=== PATIENT | female | born 1965 | race Asian ===

== ENCOUNTER 2019-04-17 18:52 | Emergency (ER) | payer OTHER ==
[2019-04-17 19:03] VITALS: BP 111/70; PULSE 86; TEMP 97.7; BMI 36.7
[2019-04-17] MEDS ORDERED: DIPHTH,PERTUSS(ACELL),TET 0.5 ML DISP.SYRIN IM ONE ×2 (19:19→19:39)
--- NOTE | 2019-04-17 19:40 | PDOC ---
History of Present Illness - General Chief Complaint: Injury Stated Complaint: LEFT HAND/FINGER INJURY Time Seen by Provider: 04/17/19 19:09 History Source: Patient Exam Limitations: No Limitations - History of Present Illness Initial Comments: 04/17/19 19:35 HISTORY OF PRESENT ILLNESS: This is a 53-year-old woman who denies significant medical history presents emergency department for evaluation of laceration to her left palm. Patient reports she was closing a window when she felt a pain on the palm of her left hand. Patient is unsure if any of the glass broke but did not note any disruption in the glass or wooden window frame. Patient placed a paper towel in her hand and came to the emergency department immediately for evaluation. Patient is unsure of her last tetanus shot and is right hand dominant. No recent travel or sick contacts. PAST MEDICAL HISTORY: Denies past medical history SURGICAL HISTORY: Denies ALLERGIES: No known drug allergies REVIEW OF SYSTEMS General/Constitutional: Denies fever or chills. Denies weakness, weight change. HEENT: Denies change in vision. Denies ear pain or discharge. Denies sore throat. Cardiovascular: Denies chest pain or shortness of breath. Respiratory: Denies cough, wheezing, or hemoptysis. Gastrointestinal: Denies nausea, vomiting, diarrhea or constipation. Denies rectal bleeding. Genitourinary: Denies dysuria, frequency, or change in urination. Musculoskeletal: Denies joint or muscle swelling or pain. Denies neck or back pain. Skin and breasts: see HPI Neurologic: Denies headache, vertigo, loss of consciousness, or loss of sensation. Psychiatric: Denies depression or anxiety. Endocrine: Denies increased thirst. Denies abnormal weight change. Hematologic/Lymphatic: Denies anemia, easy bleeding, or history of blood clots. Allergic/Immunologic: Denies hives or skin allergy. Denies latex allergy. PHYSICAL EXAM General Appearance: Well-appearing, appropriately dressed. No apparent distress , no intoxication. Musculoskeletal/Extremities: Normal inspection. FROM of all extremities, normal capillary refill. Pelvis Stable. No CVA tenderness. No tenderness to extremities, pedal edema, swelling, erythema or deformity. Integumentary: Superficial laceration present to the palmar surface of the left hand over the proximal middle phalanx of the fifth finger. Bleeding is well- controlled. No obvious debris present in laceration. NVI. 04/17/19 19:40 Past History - Past Medical History Allergies/Adverse Reactions: Allergies Allergy/AdvReac Type Severity Reaction Status Date / Time No Known Allergies Allergy Verified 04/17/19 18:59 Home Medications: Ambulatory Orders NK [No Known Home Medication] 04/17/19 COPD: No Diabetes: (pre) - Immunization History Immunization Up to Date: No - Suicide/Smoking/Psychosocial Hx Smoking History: Never smoked *Physical Exam - Vital Signs Last Vital Signs Temp Pulse Resp BP Pulse Ox 97.7 F 86 18 111/70 99 04/17/19 18:54 04/17/19 18:54 04/17/19 18:54 04/17/19 18:54 04/17/19 18:54 Procedures - Consent Consent obtained: Verbal, From Patient - Laceration/Wound Repair Left Volar Hand Wound Length: to 2.5 cm Wound Explored: clean Wound's Depth, Shape: superficial Irrigated w/ Saline: Yes Betadine Prep: Yes Anesthesia: 1% Lidocaine Amount of Anesthetic (ccs): 6 Wound Debrided: minimal Wound Repaired With: Sutures Suture Size/Type: 4:0, nylon Number of Sutures: 3 Layer Closure: No Sterile Dressing Applied: Yes Splint Applied: Yes Sling Applied: No Progress: 04/17/19 20:57 the patient tolerated well ED Treatment Course - RADIOLOGY Radiology Studies Ordered: Category Date Time Status HAND- LEFT [RAD] Stat Radiology 04/17/19 19:19 Ordered Medical Decision Making - Medical Decision Making 04/17/19 19:40 A/P: 53-year-old woman with laceration to the palm of her left hand over the proximal phalanx of the fifth finger Full active range of motion of proximal phalanx including flexion and extension. Patient able to perform these movements against resistance without difficulty. X-ray Boostrix Laceration repair if x-ray is negative for fracture 04/17/19 20:55 X-rays as read by me: No acute fractures or dislocations present. No foreign body is seen. Laceration repair-see procedure note for details Discharge home I discussed the physical exam findings, ancillary test results and final diagnoses with the patient. I answered all of the patient's questions. The patient was satisfied with the care received and felt comfortable with the discharge plan and treatment plan. The patient will call their primary care physician within 24 hours to arrange follow-up and will return to the Emergency Department with any new, persistent or worsening symptoms. Portions of this note have been documented using voice recognition software. As a result, errors may occur in the bisque finisher process. Effort has been made to correct all grammatical and bisque finisher error, but some may have been missed. *DC/Admit/Observation/Transfer Diagnosis at time of Disposition: Hand laceration Qualifiers: Encounter type: initial encounter Foreign body presence: without foreign body Laterality: left Qualified Code(s): S61.412A - Laceration without foreign body of left hand, initial encounter - Discharge Dispostion Disposition: HOME Condition at time of disposition: Stable Decision to Admit order: No - Referrals - Patient Instructions Additional Instructions: Rest, elevate, avoid strenuous activity or heavy lifting until sutures are removed Leave dressing on for the next 24 hours, Then may remove dressing gently and wash area with soap and water. Reapply bacitracin ointment and dressing daily for the next 5 days On day #6 keep the wound protected and cover as needed until sutures are removed allowing wound to start to dry May use Tylenol or Motrin for pain relief Suture removal in : 7-10 Days - Post Discharge Activity
== END 2019-04-17 21:01 | disposition home or self-care (01) ==
LOC: JERFT 18:52
PROC: 3E0234Z Introduction of Serum, Toxoid and Vaccine into Muscle, Percutaneous Approach (ICD-10-PCS; principal; 2019-04-17)
PROC: 0HQGXZZ Repair Left Hand Skin, External Approach (ICD-10-PCS; 2019-04-17)
DX: S61.412A Laceration without foreign body of left hand, initial encounter (principal); W45.8XXA Other foreign body or object entering through skin, initial encounter; W22.8XXA Striking against or struck by other objects, initial encounter; Y93.89 Activity, other specified; Y92.018 Other place in single-family (private) house as the place of occurrence of the external cause; Y99.8 Other external cause status
CPT/HCPCS: 12005; 73130-TC-LT-FY; 90471; 90715; 99281-25

== ENCOUNTER 2019-04-26 14:37 | Emergency (ER) | payer OTHER | END 2019-04-26 16:01 | disposition home or self-care (01) | LOC: JERFT 14:37 ==

== ENCOUNTER 2019-04-29 14:14 | Emergency (ER) | payer OTHER ==
[2019-04-29 14:29] VITALS: BP 103/66; PULSE 81; TEMP 98.7; BMI 29.2
--- NOTE | 2019-04-29 14:33 | PDOC ---
Rapid Medical Evaluation Chief Complaint: Suture/Staple Removal(Here) Time Seen by Provider: 04/29/19 14:24 Medical Evaluation: Allergies Allergy/AdvReac Type Severity Reaction Status Date / Time No Known Allergies Allergy Verified 04/29/19 14:27 Vital Signs Temp Pulse Resp BP Pulse Ox 98.7 F 81 18 103/66 99 04/29/19 14:27 04/29/19 14:27 04/29/19 14:27 04/29/19 14:27 04/29/19 14:27 04/29/19 14:30 Patient presents to ED with complaints of: here for suture removal from left hand Patient on brief exam: dry intact sutures I have ordered: none Patient to proceed to the ED Discharge Disposition - Diagnosis Visit for suture removal - Referrals - Patient Instructions - Post Discharge Activity
--- NOTE | 2019-04-29 14:44 | PDOC ---
Suture Removal/Wound Check HPI - History of Present Illness Chief Complaint: Suture/Staple Removal(Here) Stated Complaint: REMOVAL OF STITCHES Time Seen by Provider: 04/29/19 14:24 History Source: Yes: Patient Exam Limitations: Yes: No Limitations Treated at: [facility] ED - Previous ED Treatment Type of procedure performed on last visit: Yes: Laceration Repair Tetanus Immunization: Yes: Up to Date Antibiotics Prescribed: No Past History - Travel Traveled outside of the country in the last 30 days: No Close contact w/someone who was outside of country & ill: No - Past Medical History Allergies/Adverse Reactions: Allergies Allergy/AdvReac Type Severity Reaction Status Date / Time No Known Allergies Allergy Verified 04/29/19 14:27 Home Medications: Ambulatory Orders NK [No Known Home Medication] 04/17/19 COPD: No Diabetes: (pre) - Immunization History Immunization Up to Date: No - Suicide/Smoking/Psychosocial Hx Smoking History: Never smoked Hx Alcohol Use: No Drug/Substance Use Hx: No Suture Removal/Wound Check PE - Physical Exam Laceration/Wound Check Symptoms: reports: Improved, Resolved. denies: Pain, Redness Current Severity Level: None Maximum Severity Level: None Location of Laceration/Wound: right: Finger (base of r 5th finger) *Review of Systems - Review of Systems Constitutional: No: Chills, Fever, Weakness Integumentary: Yes: Other (3 simple interrupted sutures in place). No: Bruising , Erythema All Other Systems: Reviewed and Negative *Physical Exam - Vital Signs Last Vital Signs Temp Pulse Resp BP Pulse Ox 98.7 F 81 18 103/66 99 04/29/19 14:27 04/29/19 14:27 04/29/19 14:27 04/29/19 14:27 04/29/19 14:27 - Physical Exam General Appearance: Yes: Nourished, Appropriately Dressed. No: Apparent Distress Medical Decision Making - Medical Decision Making 04/29/19 14:42 The patient is a 54 y/o F who presents to have her sutures removed from her R hand that were placed two weeks ago. Denies fevers, chills,numbnes, tingling and weakness to the affected extremity. A/P: suture removal 3 simple interrupted sutures placed at the base of the r 5th finger Wound is now dry and well approximated Sutures removed DC home I discussed the physical exam findings, ancillary test results and final diagnoses with the patient. I answered all of the patient's questions. The patient was satisfied with the care received and felt comfortable with the discharge plan and treatment plan. The Patient agrees to follow up with the primary care physician/specialist within 24-72 hours. Return precautions were given. *DC/Admit/Observation/Transfer Diagnosis at time of Disposition: Visit for suture removal - Discharge Dispostion Disposition: HOME Condition at time of disposition: Stable Decision to Admit order: No - Referrals - Patient Instructions Printed Discharge Instructions: DI for Suture Removal Additional Instructions: You had your sutures/jamila removed today. Please use bacitracin on the site for the next week. Avoid soaking the area with water for 1 more week as to what the wound fully heal. Follow-up with her primary care doctor as needed Return to the emergency department if you develop fevers, drainage from the site , increased pain, or have any changes in your symptoms. - Post Discharge Activity Forms/Work/School Notes: Back to Work
== END 2019-04-29 14:54 | disposition home or self-care (01) ==
LOC: JERFT 14:14
DX: Z48.02 Encounter for removal of sutures (principal)
CPT/HCPCS: 99281-25

== ENCOUNTER 2020-02-26 19:14 | Emergency (ER) | payer OTHER ==
--- NOTE | 2020-02-26 19:21 | PDOC ---
Rapid Medical Evaluation Time Seen by Provider: 02/26/20 19:18 Medical Evaluation: Allergies Allergy/AdvReac Type Severity Reaction Status Date / Time No Known Allergies Allergy Verified 04/29/19 14:27 02/26/20 19:18 I performed a brief in-person evaluation of this patient. Pt is a 54 y/o female who presents to the ED with complaint of R hand injury, index finger, after jamming it on the counter for 2 days. Pt also complains of waking up with nausea, upset stomach since this morning. She admits to having loose bowels 2-3 times today. No vomiting. Pertinent physical exam findings: R IF with swelling appreciated, speaking in full sentences, + epigastric abdominal tenderness to palpation. I have ordered the following: R hand xr, saline lock, labs, zofran, pepcid Patient to proceed to ED for further evaluation. Discharge Disposition - Diagnosis Injury of right hand, Abdominal pain - Referrals - Patient Instructions - Post Discharge Activity
[2020-02-26 19:22] VITALS: BMI 35.4
[2020-02-26] MEDS ORDERED: SODIUM CHLORIDE 1,000 ML IV STA (19:22)
[2020-02-26] MEDS ORDERED: FAMOTIDINE 20 MG/50 ML IVPB 20 MG/50 ML MG IVPB ONE ×2 (19:22→20:04)
[2020-02-26] MEDS ORDERED: ONDANSETRON 4 MG/2 ML VIAL IVPUSH ONE (19:22)
[2020-02-26] MEDS ORDERED: MAG HYDROX/AL HYDROX/SIMETH -MYLANTA- ORAL SUSPENSION PO ONE (20:01)
--- NOTE | 2020-02-26 20:10 | PDOC ---
History of Present Illness - General Chief Complaint: Pain Stated Complaint: abdominal pain/nausea Time Seen by Provider: 02/26/20 19:18 History Source: Patient - History of Present Illness Timing/Duration: reports: constant Quality: reports: moderate Abdominal Pain Onset Location: reports: RUQ, epigastric, periumbilical Past History - Medical History Allergies/Adverse Reactions: Allergies Allergy/AdvReac Type Severity Reaction Status Date / Time No Known Allergies Allergy Verified 04/29/19 14:27 Home Medications: Ambulatory Orders Acetaminophen [Tylenol -] 650 mg PO Q6H #30 tablet 02/26/20 Famotidine [Pepcid] 20 mg PO BID #28 tablet 02/26/20 Mag Hydrox/Al Hydrox/Simeth [Mylanta Suspension -] 30 ml PO Q6H #1 bottle 02/26/20 COPD: No Diabetes: Yes (pre) - Immunization History Immunization Up to Date: No - Psycho-Social/Smoking History Smoking History: Never smoked Have you smoked in the past 12 months: No - Substance Abuse Hx (Audit-C & DAST Scrn) How often the patient has a drink containing alcohol: Never Score: In Men: 4 or > Positive; In Women: 3 or > Positive: 0 Screen Result (Pos requires Nsg. Audit-10AR): Negative In the last yr the pt used illegal drug/Rx for NonMed reason: No Score: Yes response is considered Positive: 0 Screen Result (Positive result requires Nsg. DAST-10): Negative Abd/GI Specific PMHX - Complaint Specific PMHX Colitis: No Gall Bladder Disease: No Irritable Bowel Synd (IBS): No GI Ulcer Disease: No Review of Systems - Review of Systems Constitutional: No: Chills, Fever Respiratory: No: Cough, Shortness of Breath Cardiac (ROS): No: Chest Pain ABD/GI: Yes: Nausea, Abdominal cramping. No: Blood Streaked Bowels, Constipated, Diarrhea, Rectal Bleeding, Vomiting : No: Dysuria, Flank Pain, Hematuria *Physical Exam - Vital Signs Last Vital Signs Temp Pulse Resp BP Pulse Ox 99.7 F H 101 H 19 130/84 97 02/26/20 19:17 02/26/20 19:17 02/26/20 19:17 02/26/20 19:17 02/26/20 19:17 - Physical Exam General Appearance: Yes: Appropriately Dressed. No: Apparent Distress HEENT: positive: Normal Voice Neck: positive: Supple Respiratory/Chest: negative: Respiratory Distress Gastrointestinal/Abdominal: positive: Normal Bowel Sounds, Soft, Other (s ignificant ttp to epigastrium and mid upper abd, no sig ttp to RUQ, neg murpheys, no lower abd ttp). negative: Pulsatile Mass, Distended, Guarding, Rebound Musculoskeletal: negative: CVA Tenderness Integumentary: positive: Dry, Warm Neurologic: positive: Fully Oriented, Alert, Normal Mood/Affect ED Treatment Course - LABORATORY CBC & Chemistry Diagram: 02/26/20 20:45 02/26/20 20:38 Medical Decision Making - Medical Decision Making 02/26/20 20:02 54 yo morbidly obesed female, DM, here w/ abd pain w/ excessive belching and nausea that pt awoke with this am, constant and present all day. No change in BM, BRBPR, melena, f/c or dysuria. No h/o same. States she ate barbeque at 8pm last night. No h/o gallstones or renal stones see exam Suspect posible gastritis/GERD vs acute velia (given low grade fever) vs diverticulitis or appendicitis (no lower abd ttp on exam), less likely pancreatitis, renal colic, uti/pyelo or cardiac Low grade fever w/ HR 101 and sig ttp on exam -symptomatic control -labs -US -?CT -reassess R 2nd digit pain Direct blow against cabinet at home Minimal swelling/ttp to distal phalanx XR pending but m/l contusion/sprain 02/26/20 22:10 Labs and US unremarkable. Pt reports that her sxs have resolved w/ meds. Rpt temp and HR 99.1F and 85 respectively. No abd ttp on repeat abd exam. Pt declines CXR at this time. Feels well enough to go home w/ meds. Strict return precautions given. Of note possible pinpoint chip fx to base of distal phalanx of R 2nd digit. OTC meds prn pain. PMD f/u Discharge - Discharge Information Problems reviewed: Yes Clinical Impression/Diagnosis: Epigastric pain Finger fracture, right Qualifiers: Encounter type: initial encounter Finger: index finger Fracture type: closed Phalanx: distal Fracture alignment: nondisplaced Qualified Code(s): S62.660A - Nondisplaced fracture of distal phalanx of right index finger, initial encounter for closed fracture Condition: Improved Disposition: HOME - Additional Discharge Information Prescriptions: Mag Hydrox/Al Hydrox/Simeth [Mylanta Suspension -] 30 ml PO Q6H #1 bottle Famotidine [Pepcid] 20 mg PO BID #28 tablet Acetaminophen [Tylenol -] 650 mg PO Q6H #30 tablet - Follow up/Referral - Patient Discharge Instructions Patient Printed Discharge Instructions: Gastritis, DI for Finger Fracture Additional Instructions: You were treated for possible gastritis. Your labs and ultrasound were unremarkable. Take medications as prescribed and follow-up with your primary care physician If symptoms worsen, return to ER immediately You also have a very small chip fracture of your right index finger that will heal on its own. Take Tylenol as needed for pain - Post Discharge Activity
[2020-02-26] MEDS ORDERED: ACETAMINOPHEN 325 MG TABLET (FP) PO ONE (20:15)
[2020-02-26 20:48] LABS: BASO % 0.3 % (0-2.0); EOS % 0.1 % (0-4.5); HEMATOCRIT 40.1 % (32.4-45.2); HEMOGLOBIN 13.3 GM/dL (10.7-15.3); LYMPH % 10.1 % (8-40); MCH 29.3 pg (25.7-33.7); MCHC 33.2 g/dl (32.0-36.0); MEAN CELL VOLUME 88.2 fl (80-96); MEAN PLT VOLUME 9.8 fl (7.5-11.1); MONO % 6.5 % (3.8-10.2); PLATELET COUNT 153 K/MM3 (134-434); RBC 4.55 M/mm3 (3.60-5.2); RDW 13.8 % (11.6-15.6); WHITE BLOOD COUNT 10.8 K/mm3 (4.0-10.0)
[2020-02-26 20:50] LABS: PH,URINE 5.5 (5.0-8.0); URINE APPEARANCE CLEAR; URINE BILIRUBIN NEGATIVE (NEGATIVE); URINE COLOR YELLOW; URINE GLUCOSE (UA) NEGATIVE (NEGATIVE); URINE KETONE NEGATIVE (NEGATIVE); URINE LEUK ESTERASE NEGATIVE (NEGATIVE); URINE NITRITE NEGATIVE (NEGATIVE); URINE PROTEIN NEGATIVE (NEGATIVE); URINE UROBILINOGEN 0.2 mg/dL (0.2-1.0)
[2020-02-26] MEDS ORDERED: ACETAMINOPHEN 325 MG TABLET (FP) ONE (20:56)
[2020-02-26] MEDS ORDERED: MAG HYDROX/AL HYDROX/SIMETH 30 ML UNIT-DOSE CUP ONE (20:56)
[2020-02-26 21:18] LABS: BILIRUBIN,TOTAL 0.3 mg/dL (0.2-1); CALCIUM 8.7 mg/dL (8.5-10.1); CREATININE 0.8 mg/dL (0.55-1.3); POTASSIUM 4.1 mmol/L (3.5-5.1); TOT PROT 7.8 g/dl (6.4-8.2)
[2020-02-26 22:24] VITALS: BP 121/74; PULSE 85; TEMP 99.5
== END 2020-02-26 22:48 | disposition home or self-care (01) ==
LOC: JER 19:14
PROC: 3E033NZ Introduction of Analgesics, Hypnotics, Sedatives into Peripheral Vein, Percutaneous Approach (ICD-10-PCS; principal; 2020-02-26)
PROC: 3E033GC Introduction of Other Therapeutic Substance into Peripheral Vein, Percutaneous Approach (ICD-10-PCS; 2020-02-26)
PROC: 3E0337Z Introduction of Electrolytic and Water Balance Substance into Peripheral Vein, Percutaneous Approach (ICD-10-PCS; 2020-02-26)
DX: S62.660A Nondisplaced fracture of distal phalanx of right index finger, initial encounter for closed fracture (principal); R10.13 Epigastric pain
CPT/HCPCS: 36415; 73130-TC-RT-FY; 76705-TC; 80053; 81003; 83690; 85025; 87086; 99285-25

== ENCOUNTER 2021-06-23 13:50 | Emergency (ER) | payer OTHER ==
[2021-06-23 14:01] VITALS: BP 109/73; PULSE 85; TEMP 97; BMI 35.9
[2021-06-23] MEDS ORDERED: KETOROLAC TROMETHAMINE 30 MG/1 ML VIAL IM ONE (14:22)
[2021-06-23] MEDS ORDERED: KETOROLAC TROMETHAMINE 30 MG/1 ML VIAL ONE (14:50)
== END 2021-06-23 15:28 | disposition home or self-care (01) ==
LOC: JER 13:50
PROC: 3E0233Z Introduction of Anti-inflammatory into Muscle, Percutaneous Approach (ICD-10-PCS; principal; 2021-06-23)
DX: G56.02 Carpal tunnel syndrome, left upper limb (principal)
CPT/HCPCS: 73110-TC-LT-FY; 99284-25

== ENCOUNTER 2021-12-09 21:27 | Emergency (ER) | payer OTHER ==
[2021-12-09 21:37] VITALS: BP 133/85; PULSE 71; TEMP 97.4; BMI 35.1
== END 2021-12-10 00:24 | disposition home or self-care (01) ==
LOC: JER 21:27
DX: L01.00 Impetigo, unspecified (principal); B00.1 Herpesviral vesicular dermatitis
CPT/HCPCS: 99281-25

== ENCOUNTER 2022-05-09 18:12 | Emergency (ER) | payer OTHER ==
[2022-05-09 18:34] VITALS: BP 131/80; PULSE 90; RESP 19; TEMP 98.2; BMI 34.0
[2022-05-09] MEDS ORDERED: DEXAMETHASONE SOD PHOSPHATE 10 MG/1 ML VIAL PO ONE (19:40)
[2022-05-09] MEDS ORDERED: DEXAMETHASONE SOD PHOSPHATE 10 MG/1 ML VIAL ONE (19:47)
== END 2022-05-09 20:38 | disposition home or self-care (01) ==
LOC: JER 18:12
DX: U07.1 COVID-19 (principal)
CPT/HCPCS: 0241U-QW; 99283-25; J1100

== ENCOUNTER 2022-09-07 15:52 | Emergency (ER) | payer OTHER ==
[2022-09-07 16:00] VITALS: BP 120/76; RESP 18; TEMP 98.9; BMI 35.2
[2022-09-07 17:10] VITALS: PULSE 94
== END 2022-09-07 17:58 | disposition home or self-care (01) ==
LOC: JER 15:52
DX: R05.1 Acute cough (principal); R09.81 Nasal congestion
CPT/HCPCS: 0241U-QW; 71046-TC-FY; 99284-25

== ENCOUNTER 2022-09-10 10:15 | Emergency (ER) | payer OTHER ==
[2022-09-10 10:26] VITALS: BP 144/88; RESP 16; TEMP 97.5; BMI 37.0
[2022-09-10 13:37] VITALS: PULSE 84
== END 2022-09-10 13:40 | disposition home or self-care (01) ==
LOC: JER 10:15
DX: L98.8 Other specified disorders of the skin and subcutaneous tissue (principal)
CPT/HCPCS: 99282-25

== ENCOUNTER 2023-10-14 14:51 | Emergency (ER) | payer OTHER ==
[2023-10-14 15:08] VITALS: BP 141/74; PULSE 106; RESP 18; TEMP 97.8; BMI 35.7
[2023-10-14] MEDS ORDERED: IBUPROFEN 600 MG TABLET (FP) PO ONE (16:37)
[2023-10-14] MEDS: IBUPROFEN 600 MG TABLET (FP) PO ONE (16:39)
== END 2023-10-14 18:35 | disposition home or self-care (01) ==
LOC: JERFT 14:51
DX: R51.9 Headache, unspecified (principal); R09.81 Nasal congestion; R05.9 Cough, unspecified; U07.1 COVID-19
CPT/HCPCS: 0241U-QW; 87070; 99283-25

== ENCOUNTER 2024-03-27 09:27 | Emergency (ER) | payer OTHER ==
[2024-03-27 09:37] VITALS: BP 118/76; PULSE 95; RESP 18; BMI 37.0
[2024-03-27] MEDS ORDERED: ONDANSETRON *ODT* 4 MG TABLET SL ONE (10:14)
[2024-03-27] MEDS: KETOROLAC TROMETHAMINE 30 MG/1 ML VIAL IM ONE (11:00)
[2024-03-27] MEDS ORDERED: FAMOTIDINE 20 MG TABLET ONE (11:17)
[2024-03-27] MEDS ORDERED: MAG HYDROX/AL HYDROX/SIMETH 30 ML UNIT-DOSE CUP ONE (11:17)
[2024-03-27] MEDS ORDERED: KETOROLAC TROMETHAMINE 30 MG/1 ML VIAL ONE (11:17)
[2024-03-27] MEDS ORDERED: ONDANSETRON *ODT* 4 MG TABLET ONE (11:17)
[2024-03-27] MEDS ORDERED: ACETAMINOPHEN 500 MG TABLET (FP) PO ONE (13:05)
[2024-03-27] MEDS ORDERED: ACETAMINOPHEN 325 MG TABLET (FP) ONE (13:06)
[2024-03-27 13:09] VITALS: TEMP 101.1
[2024-03-27] MEDS: FAMOTIDINE 20 MG TABLET PO ONE (13:09)
[2024-03-27] MEDS: ACETAMINOPHEN 500 MG TABLET (FP) PO ONE (13:09)
[2024-03-27] MEDS: MAG HYDROX/AL HYDROX/SIMETH -MYLANTA- ORAL SUSPENSION PO ONE (13:09)
== END 2024-03-27 13:10 | disposition home or self-care (01) ==
LOC: JER 09:27
PROC: 3E0133Z Introduction of Anti-inflammatory into Subcutaneous Tissue, Percutaneous Approach (ICD-10-PCS; principal; 2024-03-27)
DX: J10.1 Influenza due to other identified influenza virus with other respiratory manifestations (principal); R05.9 Cough, unspecified; R51.9 Headache, unspecified; R50.9 Fever, unspecified; R11.0 Nausea; M79.10 Myalgia, unspecified site; R07.81 Pleurodynia; J34.89 Other specified disorders of nose and nasal sinuses; Z20.822 Contact with and (suspected) exposure to COVID-19
CPT/HCPCS: 0241U-QW; 71045-TC-FY; 93005; 93010; 99285-25

== ENCOUNTER 2024-10-04 19:29 | Emergency (ER) | payer OTHER ==
[2024-10-04 19:34] VITALS: BP 126/81; PULSE 99; RESP 20; TEMP 97.7; BMI 35.9
[2024-10-04] MEDS ORDERED: KETOROLAC TROMETHAMINE 30 MG/1 ML VIAL ONE (21:10)
[2024-10-04] MEDS: KETOROLAC TROMETHAMINE 30 MG/1 ML VIAL IM ONE (21:15)
== END 2024-10-04 21:15 | disposition home or self-care (01) ==
LOC: JERFT 19:29 → JER 19:29 → JERFT 21:15
PROC: 3E0233Z Introduction of Anti-inflammatory into Muscle, Percutaneous Approach (ICD-10-PCS; principal; 2024-10-04)
DX: R21 Rash and other nonspecific skin eruption (principal); R05.9 Cough, unspecified; R09.81 Nasal congestion; B02.9 Zoster without complications; B97.4 Respiratory syncytial virus as the cause of diseases classified elsewhere; Z20.822 Contact with and (suspected) exposure to COVID-19
CPT/HCPCS: 0241U-QW; 99284-25